=== PATIENT | male | born 1990 | race Caucasian/White ===

== ENCOUNTER 2020-04-20 01:21 | Emergency (ER) | payer OTHER, SELFPAY ==
[2020-04-20 01:32] VITALS: BP 162/81; PULSE 98; RESP 16; TEMP 36.9; O2SAT 99; BMI 24.3
[2020-04-20] MEDS: fluorescein 1 mg Strip EYE-LEFT (01:48)
[2020-04-20] MEDS: eye irrigation 30 mL Btl EYE-LEFT (01:48)
[2020-04-20] MEDS: tetracaine 0.5% Op Soln 4 mL Btl 1 DROP EYE-LEFT (01:49)
--- NOTE | 2020-04-20 01:50 | ED_ITS ---
HPI - Eye Problem General: Chief complaint: Eye Problems Stated complaint: L eye injury Time Seen by Provider: 04/20/20 01:42 Source: patient Mode of arrival: ambulatory Limitations: no limitations History of Present Illness: HPI Narrative: Patient comes in for evaluation of injury to the left eye. Patient was walking and a tree limb struck him in the left eye. Patient appears in moderate to severe pain. Patient appears well. Review of Systems General: Reports: 10 or more systems reviewed and unremarkable except in HPI and below Eyes: Reports: eye redness Physical Exam Const: COMMON NORMALS: no acute distress and patient oriented x3 GENERAL APPEARANCE: cooperative HENMT: COMMON NORMALS: normocephalic and Normal external nose present HEAD & SCALP: normal to inspection and normocephalic NOSE: Normal external nose present MOUTH: Normal oral and palatal mucosa present THROAT: posterior oropharynx normal Eye: COMMON NORMALS: Equal, round and reactive pupils present GENERAL EYE: appearance normal, both eyes and all related structures ALIGNMENT: Yes alignment normal PUPIL: Yes Equal, round and reactive pupils present SLIT LAMP EXAM: Yes slit lamp exam performed with fluorescein OTHER: 4 mm abrasion noted to the central left thigh. Pupil equal and reactive. Neck/C-Spine: COMMON NORMALS: full ROM Chest: COMMONS NORMALS: normal inspection of the chest Resp: COMMON NORMALS: normal respiratory effort EFFORT & INSPECTION: Yes able to speak in complete sentences Cardio: COMMON NORMALS: regular rate and regular rhythm RATE: regular rate RHYTHM: regular rhythm GI: COMMON NORMALS: non-tender Back/Pelvis: COMMON NORMALS: thoracic and lumbar spine normal to inspection Extremity: COMMON NORMALS: normal to inspection Neuro: COMMON NORMALS: patient oriented x3 and moves all extremities Psych: COMMON NORMALS: mental status grossly normal and cooperative Skin: COMMON NORMALS: no rashes or lesions noted GENERAL SKIN EXAM: no rashes or lesions noted Course Vital Signs: Vital signs: Vital Signs Temperature 98.4 F 04/20/20 01:32 Pulse Rate 98 04/20/20 01:32 Respiratory Rate 16 04/20/20 01:32 Blood Pressure 162/81 04/20/20 01:32 Pulse Oximetry 99 04/20/20 01:32 MDM - Eye Problem MDM Narrative: Medical decision making narrative: 29-year-old male patient comes in today with injury to the left eye. On exam pupils pupils are equal and reactive. No obvious corneal laceration is noted. Patient extraocular movement is normal. Remainder the exam was normal. Differential diagnosis includes but not limited to corneal abrasion, corneal laceration, conjunctivitis. Under fluorescein staining it was noted the patient had a significant abrasion to the central left eye. Patient had good relief with tetracaine eyedrops. We will continue patient on tetracaine as needed for pain and we will place patient on tobramycin and dexamethasone ophthalmic suspension with recommendations for follow-up with eye home care companion in 3 days. Patient reports understanding of care plan and need for follow-up or return to the emergency department. Discharge Plan Discharge Patient Disposition: Home Clinical Impression: Corneal abrasion Qualifiers: Encounter type: initial encounter Laterality: left Qualified Code(s): S05.02XA - Injury of conjunctiva and corneal abrasion without foreign body, left eye, initial encounter Condition: Stable Discharge Diet: Usual diet Discharge Activity: Increase activity as tolerated Patient Instructions: Corneal Abrasion (ED) Activity Restrictions/Additional Instructions: Home and rest. Use tetracaine eyedrops, pain eyedrop, 1 drop every 3 hours for pain. Do not use the pain eyedrops for more than 48 hours. Use antibiotic drops 1 drop every 4-6 hours while awake for the next 7 days. Follow-up with eye home care companion in 3 days for recheck of eye. Return to the emergency department for new concerns. Coding Level of Care Code ED Inside [employer] Ad[employer] Executive for Mohit Pineda Exam Comprehensive
[2020-04-20 02:17] VITALS: BP 152/83
[2020-04-20] MEDS: tobramycin-dexametha Op Susp 5 mL Btl 2 DROP EYE-LEFT (02:17)
== END 2020-04-20 02:21 | disposition home or self-care (01) ==
PROVIDERS: Emergency Provider Nurse Practitioner Family
DX: S05.02XA Injury of conjunctiva and corneal abrasion without foreign body, left eye, initial encounter (principal); W22.8XXA Striking against or struck by other objects, initial encounter
CPT/HCPCS: 12345; 99281; 99283

== ENCOUNTER 2023-07-31 11:45 | Inpatient (IN) | payer OTHER, SELFPAY ==
[2023-07-31] VITALS (41 sets, daily range): BP systolic 106–176; BP diastolic 53–93; PULSE 59–91; RESP 18–20; TEMP 37.2; O2SAT 92–98
--- NOTE | 2023-07-31 11:48 | W.ED.ALCOHOL ---
HPI - Alcohol General: Chief Complaint: Alcohol Stated Complaint: alcohol withdrawal Time Seen by Provider: 07/31/23 11:48 History of Present Illness: 33-year-old male presents emergency department with complaints of longstanding alcohol abuse and active withdrawal. Patient states that he was seen last night in an emergency department and received 3 L of IV fluid and received a prescription for Librium which she filled this morning and took a 25 mg dose was unable to keep that down and vomited it back up. His last drink was yesterday morning he is attempted to try to stop drinking several times and has had history of withdrawal seizures. The patient is in obvious distress at present and is very shaky. He does have family support at bedside. He states that he has vomited 2-3 times this morning and is unable to keep any of the medication down that he was prescribed. He states that he normally drinks 2 to 3 pints of whiskey daily and has done so for the previous 17 years. He states he is had several arrests for DUI and is very remorseful as he has put his children's life in jeopardy as he has been drinking and has been drunk with his children in the car. He recently received another DUI and has a planned court appearance next week. Associated symptoms: Reports nausea and vomiting; Deny suicidal ideation Review of Systems General: Reports: 10 or more systems reviewed and unremarkable except in HPI and below GI: Reports: nausea and vomiting Neuro: Reports: other (Delirium tremens) Psych: Reports: anxiety and other (Alcohol abuse); Denies: suicidal ideation or homicidal ideation [facility] ED PFSH: Medical History (Updated 07/31/23 @ 16:31 by Juan Carlos Rubalcava MD) History of alcoholism History of MRSA infection Surgical History (Updated 07/31/23 @ 14:17 by Chava Vargas MD) History of knee surgery Family History (Updated 07/31/23 @ 14:17 by Chava Vargas MD) Daughter Diabetes mellitus type 1 Social History (Updated 07/31/23 @ 14:18 by Chava Vargas MD) Smoking and tobacco/nicotine status: never used tobacco/nicotine Alcohol intake: current Alcohol intake frequency: 3 or more drinks per day Alcohol type: beer and hard liquor Substance/Drug Use: never Physical Exam Narrative: EXAM NARRATIVE: Constitutional: the patient appeared well nourished and normally developed. Vital signs as documented. He does appear to be very anxious and shaky. HENMT: Head exam is unremarkable. Neck is without jugular venous distension, thyromegaly, or carotid bruits. Carotid upstrokes are brisk bilaterally. Eye: No scleral icterus or corneal arcus noted Resp: Lungs are clear to auscultation and percussion. Cardio: Cardiac exam reveals the PMI to be normally sized and situated. Rhythm is regular. First and second heart sounds normal. No murmurs, rubs or gallops. GI: Abdominal exam reveals normal bowel sounds, no masses, no organomegaly and no aortic enlargement. Soft, nontender to palpation. No obvious palpable masses noted. No hepatomegaly appreciated. Extremity: Extremities are non-edematous and both femoral and pedal pulses are normal. Moves all extremities well, she has sensation in all extremities. Neuro: Alert and oriented x4, person, place, time and situation. Cranial nerves II through XII are grossly intact, there is no focal neurological deficits that I can appreciate at present. Motor strength in the upper and lower extremities are equal and bilateral 5/5. Psych: Cooperative, , normal thought process, appropriate judgment. He does appear very jittery and anxious. Skin: No lesions, rashes. Course Vital Signs: Vital signs: Vital Signs Temperature 98.9 F 07/31/23 14:35 Pulse Rate 79 07/31/23 14:35 Respiratory Rate 20 H 07/31/23 14:35 Blood Pressure 158/69 07/31/23 14:35 Pulse Oximetry 96 07/31/23 16:24 Oxygen Delivery Me thod Room Air 07/31/23 16:24 MDM - Alcohol Medical Decision Making Physical exam completed and documented, given his longstanding history of alcohol abuse and concern for withdrawal seizures, I will provide the patient a banana bag, Ativan and Librium as well as IV fluid rehydration to include lactated Ringer's and a banana bag. I will obtain a CBC and CMP as well as alcohol level to evaluate his liver function. Per the patient and his support person who is present they are concerned about his severe lactic acidosis that was noted in the ER visit at another hospital yesterday. He did receive 3 L of fluid and although he did receive a large amount of fluid I suspect that he will still be acidotic and will require additional IV fluid rehydration. Given his longstanding alcohol abuse and concern for withdrawal seizures I will contact the hospital physician and request admission to the intensive care unit. Medical Records I reviewed the patient's medical records. Lab Data I reviewed the patient's lab results. 07/31/23 12:14 07/31/23 12:14 Radiology Impressions Abdomen/Pelvis CT 07/31/23 14:03 IMPRESSION: 1. Findings suspicious for duodenitis. 2. Hepatomegaly with diffuse steatosis. Laboratory Results WBC 4.15 10^3/uL (3.29-11.43) 07/31/23 12:14 RBC 3.94 10^6/uL (3.85-5.65) 07/31/23 12:14 Hgb 13.80 g/dL (11.27-16.99) 07/31/23 12:14 Hct 39.2 % (37-53) 07/31/23 12:14 MCV 99.5 fl (82-101) 07/31/23 12:14 MCH 35.0 pg (27-33) H 07/31/23 12:14 MCHC 35.2 g/dL (30-55) 07/31/23 12:14 RDW 12.6 % (12.1-15.1) 07/31/23 12:14 Plt Count 164 10^3/cmm (157-399) 07/31/23 12:14 MPV 9.8 fL (7.4-10.4) 07/31/23 12:14 Neut % (Auto) 69.9 % 07/31/23 12:14 Lymph % (Auto) 16.6 % 07/31/23 12:14 [place] % (Auto) 11.1 % 07/31/23 12:14 Eos % (Auto) 1.0 % 07/31/23 12:14 Baso % (Auto) 1.2 % 07/31/23 12:14 Neut # (Auto) 2.90 10^3/uL (1.8-7.7) 07/31/23 12:14 Lymph # (Auto) 0.7 10^3/uL (0.8-4.8) L 07/31/23 12:14 [place] # (Auto) 0.5 10^3/uL (0.2-0.9) 07/31/23 12:14 Eos # (Auto) 0.0 10^3/uL (0.0-0.8) 07/31/23 12:14 Baso # (Auto) 0.1 10^3/uL (0.0-0.1) 07/31/23 12:14 Nucleated RBC % (auto) 0 % 07/31/23 12:14 Nucleated RBCs # 0.0 /100WBC 07/31/23 12:14 PT 14.40 SECONDS (12.1-14.9) 07/31/23 12:14 INR 1.09 (0.8-1.2) 07/31/23 12:14 Sodium 140 mmol/L (136-145) 07/31/23 12:14 Potassium 4.1 mmol/L (3.5-5.1) 07/31/23 12:14 Chloride 97 mmol/L (98-107) L 07/31/23 12:14 Carbon Dioxide 18 mmol/L (22-29) L 07/31/23 12:14 Anion Gap 29.1 (5-19) H 07/31/23 12:14 BUN 14 mg/dL (6-20) 07/31/23 12:14 Creatinine 0.8 mg/dL (0.7-1.2) 07/31/23 12:14 GFR Calculation 111.3 mL/min (90-130) 07/31/23 12:14 Glucose 88 mg/dL (65-115) 07/31/23 12:14 Estimat Average Glucose 77 07/31/23 12:14 Hemoglobin A1c 4.3 % (4.0-6.0) 07/31/23 12:14 Calculated Osmolality 290 mOsm/kg (285-295) 07/31/23 12:14 Lactic Acid 3.3 mmol/L (0.5-2.2) H 07/31/23 12:14 Calcium 9.5 mg/dL (8.5-10.5) 07/31/23 12:14 Total Bilirubin 1.5 mg/dL (0.15-1.2) H 07/31/23 12:14 AST 158 U/L (0-40) H 07/31/23 12:14 ALT 145 U/L (0-41) H 07/31/23 12:14 Alkaline Phosphatase 89 U/L (40-130) 07/31/23 12:14 C-Reactive Protein 3.0 mg/L (0.0-4.9) 07/31/23 12:14 Total Protein 7.0 g/dL (6.6-8.7) 07/31/23 12:14 Albumin 5.1 g/dL (3.5-5.2) 07/31/23 12:14 Globulin 1.9 g/dL (1.3-4.6) 07/31/23 12:14 Triglycerides 73 mg/dL (0-150) 07/31/23 12:14 Cholesterol 236 mg/dL (0-200) H 07/31/23 12:14 LDL Cholesterol, Calc 105 mg/dL (50-129) 07/31/23 12:14 HDL Cholesterol 116 mg/dL (60-100) H 07/31/23 12:14 LDL/HDL Ratio 0.91 RATIO (0.00-3.22) 07/31/23 12:14 Cholesterol/HDL Ratio 2.03 mg/dL (1.0-5.00) 07/31/23 12:14 Lipase 149 U/L (13-60) H 07/31/23 12:14 Vitamin B12 420 pg/mL (232-1245) 07/31/23 12:14 Folate 10.2 ng/mL (4.5-32.2) 07/31/23 12:14 Procalcitonin 0.21 ng/mL (0-0.5) 07/31/23 12:14 TSH 2.91 uIU/mL (0.27-4.20) 07/31/23 12:14 Urine Color Yellow (Yellow) 07/31/23 12:41 Urine Appearance Clear (CLEAR) 07/31/23 12:41 Urine pH 5 (5-7) 07/31/23 12:41 Ur Specific [place] 1.025 (1.005-1.030) 07/31/23 12:41 Urine Protein Neg (Negative) 07/31/23 12:41 Urine Glucose (UA) Norm (Normal) 07/31/23 12:41 Urine Ketones 3+ (Negative) H 07/31/23 12:41 Urine Blood Neg (Negative) 07/31/23 12:41 Urine Nitrate Negative (Negative) 07/31/23 12:41 Urine Bilirubin Neg (Negative) 07/31/23 12:41 Urine Urobilinogen Norm mg/dL (Negative) 07/31/23 12:41 Ur Leukocyte Esterase Negative (Negative) 07/31/23 12:41 Salicylates < 0.3 mg/dL (3-10) L 07/31/23 12:14 Urine Opiates Screen Negative ng/mL (Negative) 07/31/23 12:41 Acetaminophen < 5.0 ug/mL (10-30) L 07/31/23 12:14 Ur Barbiturates Screen Negative ng/mL (Negative) 07/31/23 12:41 Ur Phencyclidine Scrn Negative ng/mL (Negative) 07/31/23 12:41 Ur Amphetamines Screen Negative ng/mL (Negative) 07/31/23 12:41 U Benzodiazepines Scrn Positive ng/mL (Negative) H 07/31/23 12:41 Urine Cocaine Screen Negative ng/mL (Negative) 07/31/23 12:41 U Marijuana (THC) Screen Negative ng/mL (Negative) 07/31/23 12:41 Ethyl Alcohol 58 mg/dL (0-10) H 07/31/23 12:14 No radiology studies performed this visit Critical Care Time Critical Care Time: Critical Care Time: Yes Total Critical Care Time: 60 Attestation: This case had a high probability of a clinically significant, sudden, or life threatening deterioration of this patient's condition which required my full and direct attention, intervention and personal management. Discharge Plan Discharge Patient Disposition: Admitted As Inpatient Admit Provider: Chava Vargas Clinical Impression: Metabolic acidosis, Alcohol withdrawal, Alcoholic ketoacidosis, Alcoholic intoxication, Alcohol withdrawal seizure Condition: Stable Coding Level of Care Code ED Director Hematology for Mohit Pineda
[2023-07-31] MEDS: chlordiazePOXIDE 25 mg Capsule 100 MG PO (12:10)
[2023-07-31] MEDS: ondansetron 2 mg/ML SDV 2 mL 8 MG IVP (12:19)
[2023-07-31] MEDS: LORazepam 2 mg/mL INJ 1 mL 1 MG IVP (12:20)
[2023-07-31] MEDS: sucralfate 1 gm/10 mL Oral Liq UDC PO (12:21)
[2023-07-31 12:28] LABS: Basophils # 0.1 10^3/uL (0.0-0.1); Basophils % 1.2 %; Hematocrit 39.2 % (37-53); Lymphocytes # 0.7 10^3/uL (0.8-4.8); Lymphocytes % 16.6 %; Mean Corpuscular HGB Conc 35.2 g/dL (30-55); Mean Corpuscular Volume 99.5 fl (82-101); Mean Platelet Volume 9.8 fL (7.4-10.4); Monocytes # 0.5 10^3/uL (0.2-0.9); Monocytes % 11.1 %; Neutrophils % 69.9 %; Nucleated Red Blood Cells % 0 %; Platelet Count 164 10^3/cmm (157-399); Red Blood Count 3.94 10^6/uL (3.85-5.65); Red Cell Distribution Width 12.6 % (12.1-15.1); White Blood Count 4.15 10^3/uL (3.29-11.43)
[2023-07-31 12:47] LABS: Add Urine Microscopic? NO; Charge for UA Resulting for Rev
[2023-07-31 12:49] LABS: Alanine Aminotransferase 145 U/L (0-41); Albumin Level 5.1 g/dL (3.5-5.2); Alcohol Level 58 mg/dL (0-10); Alkaline Phosphatase 89 U/L (40-130); Anion Gap 29.1 (5-19); Aspartate Amino Transferase 158 U/L (0-40); Blood Urea Nitrogen 14 mg/dL (6-20); Calcium 9.5 mg/dL (8.5-10.5); Carbon Dioxide 18 mmol/L (22-29); Chloride 97 mmol/L (98-107); Globulin 1.9 g/dL (1.3-4.6); Glomerular Filtration Rate 111.3 mL/min (90-130); Glucose 88 mg/dL (65-115); Lipase 149 U/L (13-60); Osmolality Calculated 290 mOsm/kg (285-295); Potassium 4.1 mmol/L (3.5-5.1); Sodium 140 mmol/L (136-145); Total Bilirubin 1.5 mg/dL (0.15-1.2)
[2023-07-31 13:00] LABS: Amphetamines Screen Urine Negative (Negative); Barbiturates Screen Urine Negative (Negative); Benzodiazepines Screen Urine Positive (Negative); Cocaine Screen Urine Negative (Negative); Opiate Screen Urine Negative (Negative); PCP Screen Urine Negative (Negative); THC Screen Urine Negative (Negative)
[2023-07-31 13:05] LABS: Acetaminophen < 5.0 ug/mL (10-30); Salicylate < 0.3 mg/dL (3-10)
[2023-07-31] MEDS: folic acid 1 MG, multivitamin inj 10 ML, thiamine 100 MG in sodium chloride 0.9% 1,000 ML 252.8 MG IV (13:05)
[2023-07-31 13:08] LABS: Bilirubin Urine Neg (Negative); Blood Urine Neg (Negative); Glucose Urine UA Norm (Normal); Ketones Urine 3+ (Negative); Leukocyte Esterase Urine Negative (Negative); Nitrate Urine Negative (Negative); Protein Urine Neg (Negative); Specific Gravity, Urine 1.025 (1.005-1.030); Urine Appearance Clear (CLEAR); Urine Color Yellow (Yellow); Urobilinogen Urine Norm (Negative); pH Urine 5 (5-7)
--- NOTE | 2023-07-31 14:03 | CTR_ITS ---
PROCEDURE INFORMATION: Exam: CT Abdomen And Pelvis With Contrast Exam date and time: 07/31/2023 2:13 PM Age: 33 years old Clinical indication: Abdominal pain; Generalized TECHNIQUE: Imaging protocol: Computed tomography of the abdomen and pelvis with contrast. Radiation optimization: All CT scans at this facility use at least one of these dose optimization techniques: automated exposure control; mA and/or kV adjustment per patient size (includes targeted exams where dose is matched to clinical indication); or iterative reconstruction. Contrast material: OMNI 350; Contrast volume: 100 ml; Contrast route: INTRAVENOUS (IV); REPORTING DATA: Count of CT and Cardiac NM exams in prior 12 months: This patient has received 0 known CTs and 0 known cardiac nuclear medicine studies in the 12 months prior to the current study. COMPARISON: No relevant prior studies available. RADIATION DOSE METRICS: Total DLP (mGy-cm): 472.41 FINDINGS: Liver: Enlarged liver measures 19.7 cm in craniocaudal dimension and shows diffuse hypoattenuation. No focal lesions. Gallbladder and bile ducts: Normal. No calcified stones. No ductal dilation. Pancreas: Normal without ductal dilatation. Spleen: Normal. Adrenal glands: Normal. No mass. Kidneys and ureters: Normal. No hydronephrosis. Stomach and bowel: No bowel dilatation to suggest obstruction. Mild thickening of the proximal duodenum with mild adjacent fat stranding. Appendix: No evidence of appendicitis. Intraperitoneal space: No free air, free fluid, or well-organized fluid collection. Vasculature: Unremarkable. No abdominal aortic aneurysm. Lymph nodes: No enlarged lymph nodes. Urinary bladder: Underdistended urinary bladder with circumferential wall thickening. Reproductive: Unremarkable as visualized. Bones/joints: Unremarkable. No acute fracture. Soft tissues: Unremarkable. CT/CT abdomen pelvis w con* [id number] IMPRESSION: 1. Findings suspicious for duodenitis. 2. Hepatomegaly with diffuse steatosis.
--- NOTE | 2023-07-31 14:13 | P.HP_ITS ---
Providers/Chief Complaint Admitting Physician: Chava Vargas MD Primary Care Provider: Donna Rodrigez MD Chief Complaint: alcohol withdrawal History of Present Illness Guzman Mccloud is a 33 year old male with a past medical history of alcoholism, who presents to [facility] for nausea, vomiting, abdominal pain, tremors, patient tells me that he has a history of alcoholism, he typically has 5 shots of hard alcohol a day in addition to other alcohol, up to a 2 L a day, he his last drink of alcohol was yesterday afternoon, which she had a couple of shots of whiskey, he went to [facility], was diagnosed with alcohol withdrawal, and was placed on Librium, unfortunately he was unable to keep down milligram due to nausea vomiting, persistent abdominal pain, no fevers, no chills, denies any IV drug use, does report a prior history of alcohol withdrawal seizures, alcohol hallucinations, currently denies any tactile hallucinations, no auditory hallucinations, no visual destinations, does report feeling down depressed and sad, denies any suicidal ideation, homicidal ideation, he was given 100 Librium had nausea vomiting, apparently he had vomited out, he was then given Ativan, given fluids, receiving banana bag, patient's ex- is at bedside, who helps the history taking, Review of Systems Const: Denies: fever(s) or chills Eyes: Denies: change in vision Card: Denies: chest pain Resp: Denies: dyspnea GI: Reports: abdominal pain, nausea and vomiting : Denies: flank pain or difficulty urinating Musc: Denies: neck pain or back pain Skin/Breast: Denies: rash Neuro: Denies: headache(s), numbness in extremities or weakness in extremities Psych: Reports: anxiety and depression Endo: Denies: polyuria Medications/Allergies Home Medications Medication Instructions Recorded Confirmed Last Taken Type No Known Home Medications 07/31/23 07/31/23 Unknown History Allergies Allergy/AdvReac Type Severity Reaction Status Date / Time No Known Allergies Allergy Verified 07/31/23 11:58 PFSH Acute PFSH: Medical History (Updated 07/31/23 @ 14:20 by Chava Vargas MD) History of alcoholism History of MRSA infection Surgical History (Updated 07/31/23 @ 14:17 by Chava Vargas MD) History of knee surgery Family History (Updated 07/31/23 @ 14:17 by Chava Vargas MD) Daughter Diabetes mellitus type 1 Social History (Updated 07/31/23 @ 14:18 by Chava Vargas MD) Smoking and tobacco/nicotine status: never used tobacco/nicotine Alcohol intake: current Alcohol intake frequency: 3 or more drinks per day Alcohol type: beer and hard liquor Substance/Drug Use: never Vitals/I&O/Wt Last Vital Signs Pulse 81 07/31/23 13:12 Resp 18 07/31/23 13:12 BP 146/89 07/31/23 12:06 Pulse Ox 93 07/31/23 13:12 O2 Del Method Room Air 07/31/23 12:06 Weight last 48 hrs Weight 79.379 kg Physical Exam Const: COMMON NORMALS: no acute distress and patient oriented x3 ORIENTATION/CONSCIOUSNESS: Yes awake, Yes oriented to person, Yes oriented to place and Yes oriented to time HENMT: COMMON NORMALS: normocephalic HEAD & SCALP: normocephalic Eye: COMMON NORMALS: Equal, round and reactive pupils present and EOMs intact bilaterally Neck/C-Spine: COMMON NORMALS: no JVD Lymph: LYMPHATIC: no lymphadenopathy noted Resp: COMMON NORMALS: normal respiratory effort, No retractions, No use of accessory muscles and clear to auscultation bilaterally AUSCULTATION: clear to auscultation bilaterally Cardio: COMMON NORMALS: no JVD, regular rate, regular rhythm, S1 normal heart sound present and S2 normal heart sound present RATE: regular rate RHYTHM: regular rhythm HEART SOUNDS: S1 normal heart sound present and S2 normal heart sound present GI: PALPATION: Yes Soft to palpation and Yes No hepatosplenomegaly present : OTHER: Abdomen soft, slightly distended, good bowel sounds in all 4 quadrants, diffuse tenderness, has epigastric tenderness to palpation, no guarding, no rebound, rigidity Back/Pelvis: COMMON NORMALS: no CVA tenderness Extremity: COMMON NORMALS: capillary refill normal, no clubbing, cyanosis or edema, no calf tenderness and no pedal edema Neuro: COMMON NORMALS: patient oriented x3, CN's II-XII intact bilaterally, moves all extremities and no focal motor deficits Psych: COMMON NORMALS: mental status grossly normal Data 07/31/23 12:14 07/31/23 12:14 A&P Assessment and plan (1) Alcohol withdrawal: (2) Metabolic acidosis: (3) Transaminitis: Plan Alcohol withdrawal, ? IV fluids, ? Banana bag ? CIWA protocol ? Scheduled Librium 50 every 6 hours, ?, Ativan as needed, ? We will consider Precedex ? We will consider phenobarbital based on clinical progress, ? Full code ? Lovenox for DVT prophylaxis ? CT scan abdomen pelvis ? Transaminitis, monitor ? Metabolic acidosis, IV fluids, Attestations Medical Necessity Statement*: Patient requires hospitalization, inpatient, greater than 2 midnights, for alcohol withdrawal, alcoholism, dehydration, metabolic acidosis, elevated lipase, Diagnoses Alcohol withdrawal F10.939 Metabolic acidosis E87.20 Transaminitis R74.01
[2023-07-31] MEDS: iohexol 350 mg/mL 500 mL Btl (per mL) IV (14:21)
[2023-07-31 14:42] LABS: INR 1.09 (0.8-1.2)
[2023-07-31] MEDS: lactated ringers 1,000 ML 100 ML IV ×2 (14:46→23:49)
[2023-07-31] MEDS: pantoprazole 40 mg SDV IVP (14:48)
[2023-07-31] MEDS: ondansetron 2 mg/ML SDV 2 mL 4 MG IVP (14:49)
[2023-07-31] MEDS: LORazepam 2 mg/mL INJ 1 mL IVP (14:50)
[2023-07-31] MEDS: morphine 4 mg/mL SDV 1 mL 2 MG IVP (14:51)
[2023-07-31] MEDS: enoxaparin 40 mg/0.4 mL Syringe SUBCUT (14:53)
[2023-07-31] MEDS: chlordiazePOXIDE 25 mg Capsule 50 MG PO ×2 (14:53→21:07)
[2023-07-31 15:33] LABS: Lactic Sepsis W/Reflex 3.3 mmol/L (0.5-2.2)
[2023-07-31 15:38] LABS: Reflex Lactate Order REFLEX LACTIC ORDERD
[2023-07-31 15:49] LABS: Chol HDL Ratio 2.03 mg/dL (1.0-5.00); Cholesterol 236 mg/dL (0-200); HDL Cholesterol 116 mg/dL (60-100); LDL Cholesterol Calculated 105 mg/dL (50-129); LDL HDL Ratio 0.91 RATIO (0.00-3.22); Thyroid Stimulating Hormone 2.91 uIU/mL (0.27-4.20); Triglycerides 73 mg/dL (0-150)
[2023-07-31 15:51] LABS: Folate Level 10.2 ng/mL (4.5-32.2)
[2023-07-31 15:52] LABS: Estmated Average Glucose 77; Hemoglobin A1C 4.3 % (4.0-6.0)
[2023-07-31 15:55] LABS: Procalcitonin 0.21 ng/mL (0-0.5); Vitamin B12 420 pg/mL (232-1245)
[2023-07-31] MEDS: dexmedeTOMIDine 0.9 % NaCL 400 MCG/100 ML PREMIX IV (16:18)
[2023-07-31 17:02] LABS: Lactic Acid level (Lactate) 1.1 mmol/L (0.5-2.2)
[2023-08-01] VITALS (43 sets, daily range): BP systolic 99–139; BP diastolic 43–81; PULSE 54–96; O2SAT 92–100
[2023-08-01] MEDS: chlordiazePOXIDE 25 mg Capsule 50 MG PO ×4 (02:54→21:03)
[2023-08-01] MEDS: dexmedeTOMIDine 0.9 % NaCL 400 MCG/100 ML PREMIX 7.94 MCG IV (02:54)
[2023-08-01 03:19] LABS: Amphetamines Screen Urine Negative (Negative); Barbiturates Screen Urine Negative (Negative); Benzodiazepines Screen Urine Positive (Negative); Cocaine Screen Urine Negative (Negative); Opiate Screen Urine Positive (Negative); PCP Screen Urine Negative (Negative); THC Screen Urine Negative (Negative)
[2023-08-01 04:44] LABS: Basophils % 0.8 %; Eosinophils % 0.5 %; Hematocrit 35.7 % (37-53); Lymphocytes # 0.7 10^3/uL (0.8-4.8); Lymphocytes % 19.3 %; Mean Corpuscular HGB Conc 35.3 g/dL (30-55); Mean Corpuscular Hemoglobin 34.9 pg (27-33); Mean Corpuscular Volume 98.9 fl (82-101); Mean Platelet Volume 9.9 fL (7.4-10.4); Monocytes # 0.4 10^3/uL (0.2-0.9); Monocytes % 10.7 %; Neutrophils # 2.63 10^3/uL (1.8-7.7); Neutrophils % 68.4 %; Nucleated Red Blood Cells % 0 %; Platelet Count 106 10^3/cmm (157-399); Red Blood Count 3.61 10^6/uL (3.85-5.65); Red Cell Distribution Width 12.1 % (12.1-15.1); White Blood Count 3.84 10^3/uL (3.29-11.43)
[2023-08-01 05:10] LABS: Magnesium 1.7 mg/dL (1.7-2.3); Phosphorus 2.4 mg/dL (2.5-4.5)
[2023-08-01 05:18] LABS: Alanine Aminotransferase 110 U/L (0-41); Albumin Level 4.2 g/dL (3.5-5.2); Alkaline Phosphatase 73 U/L (40-130); Anion Gap 17.1 (5-19); Aspartate Amino Transferase 118 U/L (0-40); Blood Urea Nitrogen 10 mg/dL (6-20); Calcium 9.3 mg/dL (8.5-10.5); Carbon Dioxide 26 mmol/L (22-29); Chloride 101 mmol/L (98-107); Globulin 1.5 g/dL (1.3-4.6); Glomerular Filtration Rate 129.9 mL/min (90-130); Glucose 93 mg/dL (65-115); Osmolality Calculated 289 mOsm/kg (285-295); Potassium 4.1 mmol/L (3.5-5.1); Sodium 140 mmol/L (136-145); Total Bilirubin 1.7 mg/dL (0.15-1.2); Total Protein 5.7 g/dL (6.6-8.7)
[2023-08-01] MEDS: ondansetron 2 mg/ML SDV 2 mL 4 MG IVP ×3 (08:58→22:48)
[2023-08-01] MEDS: morphine 4 mg/mL SDV 1 mL 2 MG IVP ×2 (08:59→22:48)
[2023-08-01] MEDS: folic acid 1 mg Tablet PO (09:00)
[2023-08-01] MEDS: thiamine 100 mg Tablet PO (09:00)
[2023-08-01] MEDS: multivitamin therapeutic Tablet 1 TAB PO (09:00)
[2023-08-01] MEDS: lactated ringers 1,000 ML 100 ML IV ×2 (09:49→19:49)
--- NOTE | 2023-08-01 13:23 | PM.PN ---
Subjective Subjective: Patient was seen this morning, continues to go through withdrawal symptoms, he had episodes of hallucination earlier this morning, none currently, currently tremor minimal, abdominal pain is improving he is wondering if he can try something more substantial, no nausea, no vomiting, has not had a bowel movement Vitals/I&O/Wt Last Vital Signs Temp 98.9 F 07/31/23 14:35 Pulse 68 08/01/23 06:00 Resp 20 H 07/31/23 16:35 BP 120/73 08/01/23 13:00 Pulse Ox 97 08/01/23 13:00 O2 Del Method Room Air 08/01/23 04:30 07/31/23 08/01/23 08/01/23 23:59 06:59 14:59 Intake Total 1480 / 1480 Output Total Balance 1480 / 1480 Weight last 48 hrs Weight 79.379 kg Physical Exam Const: COMMON NORMALS: no acute distress and patient oriented x3 Resp: COMMON NORMALS: normal respiratory effort, No retractions, No use of accessory muscles and clear to auscultation bilaterally AUSCULTATION: clear to auscultation bilaterally Cardio: COMMON NORMALS: regular rate, regular rhythm, S1 normal heart sound present and S2 normal heart sound present RATE: regular rate RHYTHM: regular rhythm HEART SOUNDS: S1 normal heart sound present and S2 normal heart sound present GI: COMMON NORMALS: Normal to inspection, nondistended, normoactive bowel sounds present, Soft to palpation and non-tender PALPATION: Yes Soft to palpation Extremity: COMMON NORMALS: no pedal edema Neuro: COMMON NORMALS: patient oriented x3 Psych: COMMON NORMALS: mental status grossly normal Data 08/01/23 04:25 08/01/23 04:25 A&P Assessment and plan (1) Alcohol withdrawal: (2) Metabolic acidosis: (3) Transaminitis: (4) Pancreatitis: (5) Duodenitis: (6) Hepatomegaly: Plan Alcohol withdrawal, ? IV fluids, ? Banana bag ? CIWA protocol ? Scheduled Librium 50 every 6 hours, ?, Ativan as needed, ? On Precedex drip ? We will consider phenobarbital based on clinical progress, ? Full code ? Lovenox for DVT prophylaxis ? CT scan abdomen pelvis ? Transaminitis, monitor ? Metabolic acidosis, IV fluids, Duodenitis, slowly advance diet Pancreatitis, slowly advance diet, currently no significant epigastric pain, Attestations Medical Necessity Statement*: Patient requires hospitalization for alcohol withdrawal, duodenitis, pancreatitis, inpatient, greater than 2 midnights Diagnoses Alcohol withdrawal F10.939 Metabolic acidosis E87.20 Transaminitis R74.01 Pancreatitis K85.90 Duodenitis K29.80 Hepatomegaly R16.0
[2023-08-01] MEDS: pantoprazole 40 mg SDV IVP (14:40)
[2023-08-01] MEDS: enoxaparin 40 mg/0.4 mL Syringe SUBCUT (14:40)
[2023-08-01] MEDS: acetaminophen 325 mg Tablet 650 MG PO ×2 (14:44→21:03)
[2023-08-01] MEDS: LORazepam 2 mg/mL INJ 1 mL IVP (17:55)
[2023-08-02] VITALS (37 sets, daily range): BP systolic 92–149; BP diastolic 58–97; PULSE 52–89; RESP 14–22; TEMP 36.2–36.7; O2SAT 90–100
[2023-08-02] MEDS: chlordiazePOXIDE 25 mg Capsule 50 MG PO (02:21)
[2023-08-02] MEDS: morphine 4 mg/mL SDV 1 mL 2 MG IVP (02:21)
[2023-08-02] MEDS: promethazine 25 mg/mL SDV 1 mL 12.5 MG IM (02:32)
[2023-08-02] MEDS: dexmedeTOMIDine 0.9 % NaCL 400 MCG/100 ML PREMIX IV (03:04)
[2023-08-02 05:04] LABS: Basophils % 0.9 %; Eosinophils # 0.1 10^3/uL (0.0-0.8); Eosinophils % 2.2 %; Hematocrit 36.6 % (37-53); Lymphocytes # 0.7 10^3/uL (0.8-4.8); Lymphocytes % 32.3 %; Mean Corpuscular HGB Conc 35.8 g/dL (30-55); Mean Corpuscular Hemoglobin 35.5 pg (27-33); Mean Corpuscular Volume 99.2 fl (82-101); Mean Platelet Volume 9.7 fL (7.4-10.4); Monocytes # 0.2 10^3/uL (0.2-0.9); Monocytes % 10.2 %; Neutrophils # 1.22 10^3/uL (1.8-7.7); Nucleated Red Blood Cells % 0 %; Platelet Count 113 10^3/cmm (157-399); Red Blood Count 3.69 10^6/uL (3.85-5.65); Red Cell Distribution Width 12.3 % (12.1-15.1); White Blood Count 2.26 10^3/uL (3.29-11.43)
[2023-08-02] MEDS: lactated ringers 1,000 ML 100 ML IV (05:05)
[2023-08-02 05:38] LABS: Alanine Aminotransferase 137 U/L (0-41); Albumin Level 3.9 g/dL (3.5-5.2); Alkaline Phosphatase 79 U/L (40-130); Anion Gap 13.9 (5-19); Aspartate Amino Transferase 198 U/L (0-40); Blood Urea Nitrogen 6 mg/dL (6-20); Calcium 8.9 mg/dL (8.5-10.5); Carbon Dioxide 29 mmol/L (22-29); Chloride 103 mmol/L (98-107); Globulin 1.5 g/dL (1.3-4.6); Glomerular Filtration Rate 129.9 mL/min (90-130); Glucose 87 mg/dL (65-115); Magnesium 1.6 mg/dL (1.7-2.3); Osmolality Calculated 291 mOsm/kg (285-295); Phosphorus 2.7 mg/dL (2.5-4.5); Potassium 3.9 mmol/L (3.5-5.1); Sodium 142 mmol/L (136-145); Total Bilirubin 1.6 mg/dL (0.15-1.2); Total Protein 5.4 g/dL (6.6-8.7)
[2023-08-02] MEDS: folic acid 1 mg Tablet PO (09:11)
[2023-08-02] MEDS: multivitamin therapeutic Tablet 1 TAB PO (09:11)
[2023-08-02] MEDS: magnesium lactate 84 mg Tablet PO (09:11)
[2023-08-02] MEDS: thiamine 100 mg Tablet PO (09:11)
[2023-08-02] MEDS: chlordiazePOXIDE 25 mg Capsule PO ×3 (09:12→20:45)
[2023-08-02] MEDS: enoxaparin 40 mg/0.4 mL Syringe SUBCUT (13:51)
[2023-08-02] MEDS: pantoprazole 40 mg SDV IVP (13:52)
[2023-08-02] MEDS: LORazepam 2 mg/mL INJ 1 mL IVP (15:10)
--- NOTE | 2023-08-02 15:52 | PM.PN ---
Subjective Subjective: Patient was seen this morning, his abdominal pain has improved he had a bowel movement, no hallucinations, minimal tremors, no fevers, no chills, he wants to try something more substantial, continues to have heart palpitations, anxiety, Vitals/I&O/Wt Last Vital Signs Temp 98.1 F 08/02/23 04:56 Pulse 84 08/02/23 13:30 Resp 14 08/02/23 14:00 BP 127/81 08/02/23 14:00 Pulse Ox 90 08/02/23 13:02 O2 Del Method Room Air 08/02/23 04:56 08/02/23 08/02/23 08/02/23 06:59 14:59 22:59 Intake Total 926.667 / 3733.831 1096 / 1096 Balance 926.667 / 3733.831 1096 / 1096 Physical Exam Const: COMMON NORMALS: no acute distress and patient oriented x3 Resp: COMMON NORMALS: normal respiratory effort, No retractions, No use of accessory muscles and clear to auscultation bilaterally AUSCULTATION: clear to auscultation bilaterally Cardio: COMMON NORMALS: regular rate, regular rhythm, S1 normal heart sound present and S2 normal heart sound present RATE: regular rate RHYTHM: regular rhythm HEART SOUNDS: S1 normal heart sound present and S2 normal heart sound present GI: COMMON NORMALS: Normal to inspection, nondistended, normoactive bowel sounds present and non-tender Extremity: COMMON NORMALS: no pedal edema Neuro: COMMON NORMALS: patient oriented x3 Psych: COMMON NORMALS: mental status grossly normal Data 08/02/23 04:13 08/02/23 04:13 A&P Assessment and plan (1) Alcohol withdrawal: (2) Metabolic acidosis: (3) Transaminitis: (4) Pancreatitis: (5) Duodenitis: (6) Hepatomegaly: Plan Alcohol withdrawal, ? Overall improving, still going through withdrawals, stop Precedex, continue dose of Librium 25 mg p.o. every 8 hours -Patient would clinically benefit from inpatient treatment for his alcoholism ? IV fluids, ? Banana bag ? CIWA protocol ?, Ativan as needed, ? On Precedex drip ? We will consider phenobarbital based on clinical progress, ? Full code ? Lovenox for DVT prophylaxis ? CT scan abdomen pelvis ? Transaminitis, monitor ? Metabolic acidosis, IV fluids, Duodenitis, slowly advance diet Pancreatitis, slowly advance diet, currently no significant epigastric pain, Attestations Medical Necessity Statement*: Patient requires hospitalization alcohol withdrawal, Diagnoses Alcohol withdrawal F10.939 Metabolic acidosis E87.20 Transaminitis R74.01 Pancreatitis K85.90 Duodenitis K29.80 Hepatomegaly R16.0
[2023-08-02] MEDS: cyclobenzaprine 10 mg Tablet 5 MG PO (20:45)
[2023-08-03] VITALS: BP 137/89; PULSE 89; RESP 16; TEMP 36.7; O2SAT 100
[2023-08-03 00:03] VITALS: BP 138/74; PULSE 82; RESP 25; O2SAT 97
[2023-08-03] MEDS: lactated ringers 1,000 ML 100 ML IV (00:30)
[2023-08-03] MEDS: chlordiazePOXIDE 25 mg Capsule PO ×2 (01:19→07:57)
[2023-08-03 04:04] VITALS: BP 152/91; PULSE 92; RESP 16; TEMP 36.9; O2SAT 92
[2023-08-03] MEDS: LORazepam 2 mg/mL INJ 1 mL IVP (05:27)
[2023-08-03 06:22] LABS: Eosinophils % 0.5 %; Hematocrit 39.9 % (37-53); Lymphocytes # 1.1 10^3/uL (0.8-4.8); Lymphocytes % 29.1 %; Mean Corpuscular HGB Conc 35.8 g/dL (30-55); Mean Corpuscular Hemoglobin 35.1 pg (27-33); Mean Platelet Volume 10.7 fL (7.4-10.4); Monocytes # 0.3 10^3/uL (0.2-0.9); Monocytes % 7.5 %; Neutrophils # 2.37 10^3/uL (1.8-7.7); Neutrophils % 61.1 %; Nucleated Red Blood Cells % 0 %; Platelet Count 117 10^3/cmm (157-399); Red Blood Count 4.07 10^6/uL (3.85-5.65); White Blood Count 3.88 10^3/uL (3.29-11.43)
[2023-08-03 06:47] LABS: Alanine Aminotransferase 160 U/L (0-41); Alkaline Phosphatase 96 U/L (40-130); Anion Gap 19.5 (5-19); Aspartate Amino Transferase 157 U/L (0-40); Blood Urea Nitrogen 3 mg/dL (6-20); Calcium 9.9 mg/dL (8.5-10.5); Carbon Dioxide 27 mmol/L (22-29); Chloride 98 mmol/L (98-107); Globulin 1.9 g/dL (1.3-4.6); Glomerular Filtration Rate 155.2 mL/min (90-130); Glucose 83 mg/dL (65-115); Magnesium 1.7 mg/dL (1.7-2.3); Osmolality Calculated 288 mOsm/kg (285-295); Phosphorus 2.1 mg/dL (2.5-4.5); Potassium 3.5 mmol/L (3.5-5.1); Sodium 141 mmol/L (136-145); Total Bilirubin 1.4 mg/dL (0.15-1.2); Total Protein 6.9 g/dL (6.6-8.7)
[2023-08-03] MEDS: folic acid 1 mg Tablet PO (07:57)
[2023-08-03] MEDS: multivitamin therapeutic Tablet 1 TAB PO (07:57)
[2023-08-03] MEDS: magnesium lactate 84 mg Tablet PO (07:57)
[2023-08-03] MEDS: thiamine 100 mg Tablet PO (07:58)
--- NOTE | 2023-08-03 10:50 | P.DS_ITS ---
Discharge Providers Date of Admission: 07/31/23 13:00 Date of Discharge: August 03, 2023 Attending Provider at Admission: Chava Vargas MD Attending Provider at Discharge: Chava Vargas MD Primary Care Provider: Donna Rodrigez MD Diagnoses at Discharge Discharge Diagnosis (1) Alcohol withdrawal: Status: Acute (2) Metabolic acidosis: Status: Acute (3) Transaminitis: Status: Acute (4) Pancreatitis: Status: Acute (5) Duodenitis: Status: Acute (6) Hepatomegaly: Status: Acute Reason for Visit Reason for Visit: alcohol withdrawal Hospital Course Hospital Course Guzman Mccloud is a 33 year old male with a past medical history of alcoholism, who presents to [facility] for nausea, vomiting, abdominal pain, tremors, patient tells me that he has a history of alcoholism, he typically has 5 shots of hard alcohol a day in addition to other alcohol, up to a 2 L a day, he his last drink of alcohol was yesterday afternoon, which she had a couple of shots of whiskey, he went to [facility], was diagnosed with alcohol withdrawal, and was placed on Librium, unfortunately he was unable to keep down milligram due to nausea vomiting, persistent abdominal pain, no fevers, no chills, denies any IV drug use, does report a prior history of alcohol withdrawal seizures, alcohol hallucinations, currently denies any tactile hallucinations, no auditory hallucinations, no visual destinations, does report feeling down depressed and sad, denies any suicidal ideation, homicidal ideation, he was given 100 Librium had nausea vomiting, apparently he had vomited out, he was then given Ativan, given fluids, receiving banana bag, patient's ex- is at bedside, who helps the history taking, Patient was admitted to [facility] for alcohol withdrawal, required ICU admission, for Precedex drip, managed with Librium, Ativan, overall patient's withdrawal symptoms improved, moved to general medical floors, no recurrent hallucination episodes, will be discharged on Librium taper, with instructions to abstain from alcohol, follow-up with primary care provider in 1 week, I clinically feel the patient would benefit from inpatient alcohol rehab. If patient has any recurrent alcohol withdrawal symptoms please go to emergency room Patient did have pancreatitis and duodenitis during his hospitalization requiring bowel rest, advance diet gradually, tolerated well, having bowel movements, passing gas, no recurrent abdominal pain, follow-up with primary care as outpatient For patient's anxiety depression, discharged on Prozac, follow-up with primary care provider as outpatient - Please take Librium as prescribed, do not drive or operate heavy machinery or drink while taking medication, ?, Please use Librium and taper as prescribed ? If you have any recurrent alcohol withdrawal symptoms please go to emergency room ? Do not use Librium with alcohol, ? Your liver function on discharge, your bilirubin was 1.4, your AST was 157 your ALT was 160, please see primary care provider in 1 week for recheck liver function, ? Please follow-up with hepatology in [place] and 1 month, ? Please take vitamins as prescribed, ? Please slowly advance diet ? I would strongly recommend inpatient alcohol rehab ? Take Prozac as prescribed, monitor for suicidal or homicidal ideation, if so call 911 Physical Exam Const: COMMON NORMALS: no acute distress and patient oriented x3 Resp: COMMON NORMALS: normal respiratory effort, No retractions, No use of accessory muscles and clear to auscultation bilaterally AUSCULTATION: clear to auscultation bilaterally Cardio: COMMON NORMALS: regular rate, regular rhythm, S1 normal heart sound present and S2 normal heart sound present RATE: regular rate RHYTHM: regular rhythm HEART SOUNDS: S1 normal heart sound present and S2 normal heart sound present GI: COMMON NORMALS: Normal to inspection, nondistended, normoactive bowel sounds present and non-tender Extremity: COMMON NORMALS: no pedal edema Neuro: COMMON NORMALS: patient oriented x3 Psych: COMMON NORMALS: mental status grossly normal Discharge Data Studies Completed and Pending Completed Studies During Hospitalization Category Date Time Status CT abdomen pelvis w con* [id number] Routine Cat Scan 07/31/23 14:03 Completed Pending at discharge Category Date Time Status Complete Blood Count w/Auto AM LABS Lab 08/04/23 04:00 Ordered Radiology Impressions Abdomen/Pelvis CT 07/31/23 14:03 IMPRESSION: 1. Findings suspicious for duodenitis. 2. Hepatomegaly with diffuse steatosis. Laboratory Results WBC 3.88 10^3/uL (3.29-11.43) 08/03/23 05:25 RBC 4.07 10^6/uL (3.85-5.65) 08/03/23 05:25 Hgb 14.30 g/dL (11.27-16.99) 08/03/23 05:25 Hct 39.9 % (37-53) 08/03/23 05:25 MCV 98.0 fl (82-101) 08/03/23 05:25 MCH 35.1 pg (27-33) H 08/03/23 05:25 MCHC 35.8 g/dL (30-55) 08/03/23 05:25 RDW 12.0 % (12.1-15.1) L 08/03/23 05:25 Plt Count 117 10^3/cmm (157-399) L 08/03/23 05:25 MPV 10.7 fL (7.4-10.4) H 08/03/23 05:25 Neut % (Auto) 61.1 % 08/03/23 05:25 Lymph % (Auto) 29.1 % 08/03/23 05:25 [place] % (Auto) 7.5 % 08/03/23 05:25 Eos % (Auto) 0.5 % 08/03/23 05:25 Baso % (Auto) 1.0 % 08/03/23 05:25 Neut # (Auto) 2.37 10^3/uL (1.8-7.7) 08/03/23 05:25 Lymph # (Auto) 1.1 10^3/uL (0.8-4.8) 08/03/23 05:25 [place] # (Auto) 0.3 10^3/uL (0.2-0.9) 08/03/23 05:25 Eos # (Auto) 0.0 10^3/uL (0.0-0.8) 08/03/23 05:25 Baso # (Auto) 0.0 10^3/uL (0.0-0.1) 08/03/23 05:25 Nucleated RBC % (auto) 0 % 08/03/23 05:25 Nucleated RBCs # 0.0 /100WBC 08/03/23 05:25 PT 14.40 SECONDS (12.1-14.9) 07/31/23 12:14 INR 1.09 (0.8-1.2) 07/31/23 12:14 Sodium 141 mmol/L (136-145) 08/03/23 05:25 Potassium 3.5 mmol/L (3.5-5.1) 08/03/23 05:25 Chloride 98 mmol/L (98-107) 08/03/23 05:25 Carbon Dioxide 27 mmol/L (22-29) 08/03/23 05:25 Anion Gap 19.5 (5-19) H 08/03/23 05:25 BUN 3 mg/dL (6-20) L 08/03/23 05:25 Creatinine 0.6 mg/dL (0.7-1.2) L 08/03/23 05:25 GFR Calculation 155.2 mL/min (90-130) H 08/03/23 05:25 Glucose 83 mg/dL (65-115) 08/03/23 05:25 Estimat Average Glucose 77 07/31/23 12:14 Hemoglobin A1c 4.3 % (4.0-6.0) 07/31/23 12:14 Calculated Osmolality 288 mOsm/kg (285-295) 08/03/23 05:25 Lactic Acid 3.3 mmol/L (0.5-2.2) H 07/31/23 12:14 Lactic Acid (Sepsis) 1.1 mmol/L (0.5-2.2) 07/31/23 16:20 Calcium 9.9 mg/dL (8.5-10.5) 08/03/23 05:25 Phosphorus 2.1 mg/dL (2.5-4.5) L 08/03/23 05:25 Magnesium 1.7 mg/dL (1.7-2.3) 08/03/23 05:25 Total Bilirubin 1.4 mg/dL (0.15-1.2) H 08/03/23 05:25 AST 157 U/L (0-40) H 08/03/23 05:25 ALT 160 U/L (0-41) H 08/03/23 05:25 Alkaline Phosphatase 96 U/L (40-130) 08/03/23 05:25 C-Reactive Protein 3.0 mg/L (0.0-4.9) 07/31/23 12:14 Total Protein 6.9 g/dL (6.6-8.7) 08/03/23 05:25 Albumin 5.0 g/dL (3.5-5.2) 08/03/23 05:25 Globulin 1.9 g/dL (1.3-4.6) 08/03/23 05:25 Triglycerides 73 mg/dL (0-150) 07/31/23 12:14 Cholesterol 236 mg/dL (0-200) H 07/31/23 12:14 LDL Cholesterol, Calc 105 mg/dL (50-129) 07/31/23 12:14 HDL Cholesterol 116 mg/dL (60-100) H 07/31/23 12:14 LDL/HDL Ratio 0.91 RATIO (0.00-3.22) 07/31/23 12:14 Cholesterol/HDL Ratio 2.03 mg/dL (1.0-5.00) 07/31/23 12:14 Lipase 149 U/L (13-60) H 07/31/23 12:14 Vitamin B12 420 pg/mL (232-1245) 07/31/23 12:14 Folate 10.2 ng/mL (4.5-32.2) 07/31/23 12:14 Procalcitonin 0.21 ng/mL (0-0.5) 07/31/23 12:14 TSH 2.91 uIU/mL (0.27-4.20) 07/31/23 12:14 Urine Color Yellow (Yellow) 07/31/23 12:41 Urine Appearance Clear (CLEAR) 07/31/23 12:41 Urine pH 5 (5-7) 07/31/23 12:41 Ur Specific [place] 1.025 (1.005-1.030) 07/31/23 12:41 Urine Protein Neg (Negative) 07/31/23 12:41 Urine Glucose (UA) Norm (Normal) 07/31/23 12:41 Urine Ketones 3+ (Negative) H 07/31/23 12:41 Urine Blood Neg (Negative) 07/31/23 12:41 Urine Nitrate Negative (Negative) 07/31/23 12:41 Urine Bilirubin Neg (Negative) 07/31/23 12:41 Urine Urobilinogen Norm mg/dL (Negative) 07/31/23 12:41 Ur Leukocyte Esterase Negative (Negative) 07/31/23 12:41 Salicylates < 0.3 mg/dL (3-10) L 07/31/23 12:14 Urine Opiates Screen Positive ng/mL (Negative) H 08/01/23 03:01 Acetaminophen < 5.0 ug/mL (10-30) L 07/31/23 12:14 Ur Barbiturates Screen Negative ng/mL (Negative) 08/01/23 03:01 Ur Phencyclidine Scrn Negative ng/mL (Negative) 08/01/23 03:01 Ur Amphetamines Screen Negative ng/mL (Negative) 08/01/23 03:01 U Benzodiazepines Scrn Positive ng/mL (Negative) H 08/01/23 03:01 Urine Cocaine Screen Negative ng/mL (Negative) 08/01/23 03:01 U Marijuana (THC) Screen Negative ng/mL (Negative) 08/01/23 03:01 Ethyl Alcohol 58 mg/dL (0-10) H 07/31/23 12:14 Vitals Last Vital Signs Temp 98.4 F 08/03/23 04:04 Pulse 92 08/03/23 04:04 Resp 16 08/03/23 04:04 BP 152/91 08/03/23 04:04 Pulse Ox 92 08/03/23 04:04 O2 Del Method Room Air 08/03/23 04:04 Discharge Plan Discharge Patient Disposition: Home Condition: Stable Prescriptions: New chlordiazepoxide HCl 25 mg Capsule See Rx Instructions .ROUTE .COMPLEX Qty: 18 0RF Rx Instructions: 1 tab q8hr for 3 days, 1 tab q12hr for 3 days, 1 tab q24hr for 3 days Magtab 84 mg Tablet Extended Release 84 mg PO DAILY 7 Days Qty: 7 0RF Vitamin B-1 (mononitrate) 100 mg Tablet 100 mg PO DAILY 30 Days Qty: 30 0RF Thera 400 mcg Tablet 1 tab PO DAILY 3 Days Qty: 30 0RF ondansetron HCl 4 mg tablet 4 mg PO Q8H PRN (Reason: nausea and vomiting) 5 Days Qty: 15 0RF Prozac 10 mg capsule 10 mg PO DAILY 30 Days Qty: 30 0RF Discharge Orders: Discharge Order (Routine); Ordered 08/03/23 Ordered By: Chava Vargas Referrals: [facility] [Other] (?Follow up as a walk in at [facility], walk in hours are Wednesday-Wednesday from 7:30AM-3:00PM, first come, first seen. Once you do this assessment you will be referred for appropriate services.) Crisis Stabilization [Other] (7 days/week 8am-6pm) Macario Avila MD [Referring] - 1 month Discharge Diet: Advance as tolerated Discharge Activity: Resume usual activity Patient Instructions: Alcoholism, Cirrhosis of the Liver (DC), Alcohol Intoxication (DC), Abuse of Alcohol (DC), Acute Nausea and Vomiting (DC), Al[place] hol Withdrawal (DC), Opioid Safety Activity Restrictions/Additional Instructions: - Please take Librium as prescribed, do not drive or operate heavy machinery or drink while taking medication, ?, Please use Librium and taper as prescribed ? If you have any recurrent alcohol withdrawal symptoms please go to emergency room ? Do not use Librium with alcohol, ? Your liver function on discharge, your bilirubin was 1.4, your AST was 157 your ALT was 160, please see primary care provider in 1 week for recheck liver function, ? Please follow-up with hepatology in [place] and 1 month, ? Please take vitamins as prescribed, ? Please slowly advance diet ? I would strongly recommend inpatient alcohol rehab ? Take Prozac as prescribed, monitor for suicidal or homicidal ideation, if so c all 911 Discharge Attestations Time Spent in Discharge Care*: greater than 30 min Quality Metrics Clinical Quality Measures [ No reported AMI, CVA or VTE this stay] Coding Level of Care Code 85978 Total time (in minutes) for Discharge: 45 Diagnoses Alcohol withdrawal F10.939 Metabolic acidosis E87.20 Transaminitis R74.01 Pancreatitis K85.90 Duodenitis K29.80 Hepatomegaly R16.0
[2023-08-03 12:10] VITALS: BP 152/91; PULSE 92; RESP 16; TEMP 36.9; O2SAT 92
--- NOTE | 2023-08-03 12:11 | PC.NURSE ---
Discharge instructions provided to patient and ex . Meds to beds have been delivered. No questions on discharge instructions at this time. Pt elects to walk with ex to private vehicle. All belongings with pt.
== END 2023-08-03 12:12 | disposition home or self-care (01) | DRG 896 ==
LOC: ER 12:34 → ICU 13:07 → MEDSURG 08-03 00:25
PROVIDERS: Admitting Provider Family Medicine; Emergency Provider Internal Medicine; PCP Family Medicine; Visit Provider Family Medicine
DX: F10.239 Alcohol dependence with withdrawal, unspecified (principal); K85.90 Acute pancreatitis without necrosis or infection, unspecified; E87.20 Acidosis, unspecified; Z86.14 Personal history of Methicillin resistant Staphylococcus aureus infection; F41.9 Anxiety disorder, unspecified; F32.A Depression, unspecified; K29.80 Duodenitis without bleeding; R16.0 Hepatomegaly, not elsewhere classified; R74.01 Elevation of levels of liver transaminase levels
CPT/HCPCS: 36415; 74177; 80048; 80053; 80061; 80306; 80307; 81003; 82607; 82746; 83036; 83605; 83690; 83735; 84100; 84145; 84443; 85025; 85610; 86140; 94664; 96372; 96374; 96375; 99285; C9113; J1650; J2060; J2270; J2405; J2550; J3411; J3490; J7030; J7120; Q9967

== ENCOUNTER 2025-02-01 22:10 | Emergency (ER) | payer OTHER, SELFPAY ==
[2025-02-01 22:10] VITALS: BP 153/78; PULSE 109; RESP 18; TEMP 36.4; O2SAT 100; BMI 23.7
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
[2025-02-01] MEDS: iohexol 350 mg/mL 500 mL Btl (per mL) IV (22:22)
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
--- NOTE | 2025-02-01 22:30 | ECG_ITS ---
[facility]: 2025[facility]01 Pat Name: Guzman Mccloud Department: Room: Gender: Male Lease Administrator: : 1990 Requested By: Kolby Bettencourt Order Number: [id number] Bravo MD: Jose Rogers M.D. Measurements Intervals Sieper Rate: 90 P: 65 NM: 137 QRS: 69 QRSD: 102 T: 76 QT: 349 QTc: 428 Interpretive Statements SINUS RHYTHM No previous ECG available for comparison Electronically Signed On 02-02-2025 13:34:47 CDT by Jose Rogers M.D. [email or web address]
--- NOTE | 2025-02-01 22:36 | PC.NURSE ---
Patient refused to answer psychiatric questions to Dr Bettencourt, as well as this nurse's psychiatric assessment questions.
[2025-02-01 22:37] LABS: Basophils # 0.1 10^3/uL (0.0-0.1); Basophils % 0.7 %; Eosinophils % 0.3 %; Hematocrit 49.3 % (37-53); Lymphocytes # 1.9 10^3/uL (0.8-4.8); Lymphocytes % 26.6 %; Mean Corpuscular HGB Conc 34.5 g/dL (30-55); Mean Corpuscular Hemoglobin 32.4 pg (27-33); Mean Corpuscular Volume 93.9 fl (82-101); Mean Platelet Volume 10.8 fL (7.4-10.4); Monocytes # 0.3 10^3/uL (0.2-0.9); Monocytes % 3.4 %; Neutrophils # 5.01 10^3/uL (1.8-7.7); Neutrophils % 68.7 %; Nucleated Red Blood Cells % 0 %; Platelet Count 237 10^3/cmm (157-399); Red Blood Count 5.25 10^6/uL (3.85-5.65); Red Cell Distribution Width 11.8 % (12.1-15.1); White Blood Count 7.29 10^3/uL (3.29-11.43)
[2025-02-01 22:55] LABS: Alanine Aminotransferase 13 U/L (0-41); Albumin Level 5.3 g/dL (3.5-5.2); Alcohol Level 294 mg/dL (0-10); Alkaline Phosphatase 62 U/L (40-130); Aspartate Amino Transferase 21 U/L (0-40); Blood Urea Nitrogen 8 mg/dL (6-20); Calcium 9.3 mg/dL (8.5-10.5); Carbon Dioxide 25 mmol/L (22-29); Chloride 107 mmol/L (98-107); Creatinine Clr Calc Pharmacy 101.7498; Globulin 2.9 g/dL (1.3-4.6); Glomerular Filtration Rate 76.6 mL/min (90-130); Glucose 110 mg/dL (65-115); Osmolality Calculated 303 mOsm/kg (285-295); Sodium 147 mmol/L (136-145); Total Bilirubin 0.4 mg/dL (0.15-1.2); Total Protein 8.2 g/dL (6.6-8.7)
[2025-02-01 22:57] LABS: Acetaminophen < 5.0 ug/mL (10-30); Salicylate < 0.3 mg/dL (3-10)
[2025-02-02] VITALS: BP 127/75; PULSE 85; RESP 18; O2SAT 95
[2025-02-02] MEDS: LORazepam 1 MG/0.5 ML injection 2 MG IVP (00:16)
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
[2025-02-02] MEDS: haloperidol inj 5 mg/mL INJ 1 mL IVP (00:42)
== END 2025-02-02 01:12 | disposition short-term general hospital (02) ==
PROVIDERS: Emergency Provider Emergency Medicine; PCP Family Medicine
DX: S00.83XA Contusion of other part of head, initial encounter (principal); R93.89 Abnormal findings on diagnostic imaging of other specified body structures; F10.129 Alcohol abuse with intoxication, unspecified; Y90.8 Blood alcohol level of 240 mg/100 ml or more; V89.2XXA Person injured in unspecified motor-vehicle accident, traffic, initial encounter
CPT/HCPCS: 70450; 71260; 72125; 74177; 80053; 80307; 85025; 93005; 96374; 96375; 99285; J1630; J2060